=== PATIENT | male | born 1955 | race Caucasian/White ===

== ENCOUNTER 2021-10-22 10:34 | Emergency (ER) | payer OTHER ==
[2021-10-22] MEDS ORDERED: HYDROCODONE/APAP 7.5/325 MG TAB ONE (10:53)
--- NOTE | 2021-10-22 12:20 | RAD REPORT ---
EXAM DESCRIPTION: Ribs Right - 10/22/2021 11:19 am CLINICAL HISTORY: fall;Pain COMPARISON: <Comparisons> FINDINGS: The posterolateral right fifth and sixth ribs are fractured with no significant displaceme nt. No pathologic rib changes. No pneumothorax is seen. Right costophrenic angle blunting is present. There is right base atelectasi s. A small amount of pleural fluid or hemothorax cannot be excluded. IMPRESSION: Posterolateral right fifth and sixth rib fractures as detailed.
[2021-10-22 12:44] LABS: Absolute Lymphocytes (CBC) 1.5 K/uL (0.7-4.9); Hematocrit 51.8 % (39.6-49.0); Lymphocytes % 10.2 % (15.3-44.8); RBC Red Blood Cell Count 6.04 M/uL (4.33-5.43)
[2021-10-22] MEDS ORDERED: FENTANYL CITR 100 MCG/2 ML ONE (12:45)
[2021-10-22 13:44] LABS: Protime INR 0.99
[2021-10-22 13:52] LABS: Potassium 4.8 mmol/L (3.5-5.1)
--- NOTE | 2021-10-22 14:24 | RAD REPORT ---
EXAM DESCRIPTION: CT - Chest Abdomen Pelvis W Cont - 10/22/2021 2:13 pm CLINICAL HISTORY: Chest and abdomen pain. right side rib pain from fall COMPARISON: No comparisons TECHNIQUE: Approximately 100 mL nonionic IV contrast was administered to the patient. All CT scans are performed using dose optimization technique as appropriate and may include automated exposure control or mA/KV adjustment according to patient size. FINDINGS: The lungs are mildly emphysematous with linear subsegmental atelectasis in the right lung base.No pleural or pericardial effusion.No intrathoracic adenopathy. Right lateral fifth and sixth right ribs are fractured with slight overriding. Elevation of the right hemidiaphragm is present. Mild fatty liver. Cholecystectomy clips. The spleen, pancreas and adrenal glands are within normal li mits. Small cysts are present in both kidneys. No solid mass or hydronephrosis. No bowel obstruction, free air, free fluid or abscess. Nonvisualized appendix. No pathologic lymphad enopathy in the abdomen or pelvis. IMPRESSION: Slightly displaced right lateral fifth and sixth rib fractures.No pneumothorax.
--- NOTE | 2021-10-22 14:57 | ER ---
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 R sided trunk/rib ll1 cage pain since. + SOB. Coronavirus screen: Vaccine status: Patient reports being unvaccinated. Client denies travel out of the [place] in the last 14 days. At this time, the client does not indicate any symptoms associated with coronavirus-19. Ebola Screen: Patient denies travel to an Ebola-affected area in the 21 days before illness onset. Initial Sepsis Screen: Does the patient meet any 2 criteria? No. Patient's initial sepsis screen is negative. Does the patient have a suspected source of infection? Yes: Bone or joint infection. Risk Assessment: Do you want to hurt yourself or someone else? Patient reports no desire to harm self or others. Onset of symptoms was October 21, 2021. 10:44 Method Of Arrival: Ambulatory ll1 10:44 Acuity: CRISTHIAN 4 ll1 15:01 Mechanism of Injury: Fall from standing position. Triage Assessment: 10:47 General: Appears uncomfortable, Behavior is calm, cooperative, appropriate for age. ll1 Pain: Complains of pain in R trunk Quality of pain is described as aching. Neuro: No deficits noted. Cardiovascular: No deficits noted. Respiratory: Reports pain with respiration. Historical: - Allergies: 10:46 No Known Allergies; ll1 - PMHx: 10:46 None; ll1 - PSHx: 10:46 R BKA; Cholecystectomy; ll1 - Immunization history:: Client reports receiving the 2nd dose of the Covid vaccine. - Social history:: Smoking status: Patient reports the use of cigarette tobacco products, smokes one-half pack cigarettes per day. - Immunization history: Last tetanus immunization: - up to date. Screenin:52 Abuse screen: Denies threats or abuse. Nutritional screening: No deficits noted. ll1 Tuberculosis screening: No symptoms or risk factors identified. Fall Risk Fall in past 12 months (25 points). Ambulatory Aid- Crutches/Cane/Walker (15 pts). Total Tomas Fall Scale indicates Low Risk Score (25-44 pts). Fall prevention measures have been instituted. Side Rails Up X 2 Frequent Obs/Assesments occuring As available Patient and Family Educated on Fall Prevention Program and strategies. Primary Survey: 10:53 NO uncontrolled hemorrhage observed. A: The patient is alert. Airway: patent. ll1 Breathing/Chest: Respiratory pattern: regular, Respiratory effort: spontaneous, unlabored, Breath sounds: clear. Circulation: Pulses: palpable right radial artery and left radial artery. Disability Alert. Exposure/Environment: There is no evidence of uncontrolled external bleeding. 15:01 Reassessment Breathing/Chest Respiratory pattern Regular Respiratory effort Unlabored. ww Assessment: 11:45 Reassessment: No changes from previously documented assessment. Patient and/or family ll1 updated on plan of care and expected duration. Pain level reassessed. Patient is alert, oriented x 3, equal unlabored respirations, skin warm/dry/pink. 12:03 General: Appears in no apparent distress. uncomfortable, Behavior is calm, cooperative. vg1 Pain: Complains of pain in Right side of ribs. Neuro: Level of Consciousness is awake, alert, obeys commands, Oriented to person, place, time, situation. Cardiovascular: Patient's skin is warm and dry. Respiratory: Airway is patent Respiratory effort is even, unlabored, Breath sounds are diminished in right posterior lower lobe. GI: No signs and/or symptoms were reported involving the gastrointestinal system. : No signs and/or symptoms were reported regarding the genitourinary system. EENT: No signs and/or symptoms were reported regarding the EENT system. Derm: Skin is intact, Skin is pink, warm \T\ dry. Musculoskeletal: Circulation, motion, and sensation intact. 13:00 Reassessment: Patient appears in no apparent distress at this time. No changes from vg1 previously documented assessment. Patient and/or family updated on plan of care and expected duration. Pain level reassessed. Patient is alert, oriented x 3, equal unlabored respirations, skin warm/dry/pink. 14:24 Reassessment: Patient appears in no apparent distress at this time. No changes from ww previously documented assessment. Patient and/or family updated on plan of care and expected duration. Pain level reassessed. Patient is alert, oriented x 3, equal unlabored respirations, skin warm/dry/pink. 15:00 Reassessment: Patient appears in no apparent distress at this time. No changes from ww previously documented assessment. Patient and/or family updated on plan of care and expected duration. Pain level reassessed. Patient is alert, oriented x 3, equal unlabored respirations, skin warm/dry/pink. Vital Signs: 10:44 BP 169 / 82; Pulse 82; Resp 16; Temp 97.3; Pulse Ox 100% ; Weight 96.16 kg; Height 6 ll1 ft. 1 in. (185.42 cm); Pain 10/10; 13:20 BP 171 / 86; Pulse 72; Resp 18; Pulse Ox 100% on R/A; vg1 15:00 BP 177 / 92; Pulse 73; Resp 16; Pulse Ox 98% on R/A; ww 10:44 Body Mass Index 27.97 (96.16 kg, 185.42 cm) ll1 Luis Coma Score: 10:52 Eye Response: spontaneous(4). Verbal Response: oriented(5). Motor Response: obeys ll1 commands(6). Total: 15. Trauma Score (Adult): 10:52 Eye Response: spontaneous(1); Verbal Response: oriented(1); Motor Response: obeys ll1 commands(2); Systolic BP: > 89 mm Hg(4); Respiratory Rate: 10 to 29 per min(4); Theodore Score: 15; Trauma Score: 12 ED Course: 10:35 Patient arrived in ED. am2 10:46 Triage completed. ll1 10:46 Arm band placed on. ll1 10:49 [facility]. cp 10:49 Booker Webber MD is Attending Physician. cp 10:53 Patient has correct armband on for positive identification. Call light in reach. ll1 Cardiac monitoring not applicable on this patient. 10:53 Patient maintains SpO2 saturation greater than 95% on room air. ll1 11:18 X-ray completed. Patient tolerated procedure well. Patient taken to [facility], via 1 wheelchair. 11:21 XRAY Ribs RIGHT In Process Unspecified. EDMS 11:56 Wandy Arreaga, RN is Primary Nurse. vg1 12:30 EKG done. ww 12:30 Inserted saline lock: 20 gauge in right antecubital area, using aseptic technique. ww Blood collected. 13:20 IV discontinued, intact, bleeding controlled, No redness/swelling at site. Pressure vg1 dressing applied, IV infiltrated. 13:27 Lab(s) recollected, by ED staff, sent to lab. Inserted saline lock: 20 gauge in left vg1 wrist, using aseptic technique. Blood collected. 14:15 CT Chest, Abdomen, Pelvis - W/Contrast In Process Unspecified. EDMS 15:01 No provider procedures requiring assistance completed. ww Administered Medications: 10:52 Drug: Hydrocodone-Acetaminophen (7.5 mg-325 mg) 1 tabs Route: PO; ll1 12:03 Follow up: Response: No adverse reaction; No change in condition vg1 12:50 Drug: fentaNYL (PF) 25 mcg Route: IVP; Site: right antecubital; ww Intake: 15:00 PO: 0ml; Total: 0ml. ww Outcome: 14:56 Discharge ordered by MD. cp 15:00 Discharged to home with family. ww 15:00 Condition: stable 15:00 Patient's length of stay in the Emergency Department was greater than 2 hours. 15:01 Discharge instructions given to patient, Instructed on discharge instructions, follow ww up and referral plans. medication usage, safety practices, Demonstrated understanding of instructions, follow-up care, medications. 15:14 Patient left the ED. ww Signatures: Dispatcher [employer] EDMS Angeles Campbell 1 Viral Quiroz PA PA cp Moreno, Amanda am2 Wandy Arreaga RN RN vg1 Gisel Ruvalcaba RN RN ll1 Nicole Prado RN RN ww Corrections: (The following items were deleted from the chart) 10:48 10:44 Pulse 79bpm; Resp 16bpm; Pulse Ox 100%; Temp 97.3F; 96.16 kg; Height 6 ft. 1 in.; ll1 BMI: 27.9; Pain 10/10; ll1 13:01 12:03 Respiratory: Airway is patent Respiratory effort is even, unlabored, Breath vg1 sounds are clear bilaterally. vg1
--- NOTE | 2021-10-22 14:57 | EDPHYS ---
Physician Documentation [facility] Name: João Haro Age: 66 yrs Sex: Male : 1955 Arrival Date: 10/22/2021 Time: 10:35 Bed 6 Private MD: ED Physician Booker Webber HPI: 10/22 11:00 This 66 yrs old Male presents to ER via Ambulatory with complaints of Fall Injury, rib cp pain, right side pain. 11:00 Details of fall: The patient fell from an upright position, while walking, and struck cp dirt. Onset: The symptoms/episode began/occurred yesterday. Associated injuries: The patient sustained injury to the chest, specifically the right side lateral lower rib area, pain with breathing, pain with movement. 11:00 Patient reports fall yesterday after losing balance causing him to land on right side cp and injury right lower lateral rib area. Patient denies LOC, denies hitting head and/or neck area. Historical: - Allergies: 10:46 No Known Allergies; ll1 - PMHx: 10:46 None; ll1 - PSHx: 10:46 R BKA; Cholecystectomy; ll1 - Immunization history:: Client reports receiving the 2nd dose of the Covid vaccine. - Social history:: Smoking status: Patient reports the use of cigarette tobacco products, smokes one-half pack cigarettes per day. - Immunization history: Last tetanus immunization: - up to date. ROS: 11:05 Constitutional: Negative for body aches, chills, fever, poor PO intake. cp 11:05 Eyes: Negative for injury, pain, redness, and discharge. cp 11:05 ENT: Negative for drainage from ear(s), ear pain, sore throat, difficulty swallowing, difficulty handling secretions. 11:05 Neck: Negative for pain with movement, pain at rest, stiffness. 11:05 Cardiovascular: Positive for chest pain, of the right lower lateral rib area, Negative for edema, palpitations. 11:05 Respiratory: Negative for cough, shortness of breath, wheezing. 11:05 Abdomen/GI: Negative for abdominal pain, nausea, vomiting, and diarrhea. 11:05 Back: Negative for radiated pain. 11:05 Neuro: Negative for altered mental status, headache, loss of consciousness, syncope. 11:05 All other systems are negative. Exam: 11:10 Constitutional: The patient appears in no acute distress, alert, awake, cp non-diaphoretic, non-toxic, well developed, well nourished, uncomfortable. 11:10 Head/Face: Normocephalic, atraumatic. cp 11:10 Eyes: Periorbital structures: appear normal, Conjunctiva: normal, no exudate, no injection, Lids and lashes: appear normal, bilaterally. 11:10 ENT: External ear(s): are unremarkable, Nose: is normal, Mouth: Lips: moist, Oral mucosa: moist, Posterior pharynx: Airway: no evidence of obstruction, patent. 11:10 Neck: C-spine: vertebral tenderness, is not appreciated, crepitus, is not appreciated, ROM/movement: is normal, is supple, without pain, no range of motions limitations. 11:10 Chest/axilla: Inspection: normal, Palpation: crepitus, is not appreciated, tenderness, that is moderate, of the right lower lateral rib area. 11:10 Cardiovascular: Rate: normal, Rhythm: regular, JVD: is not appreciated. 11:10 Respiratory: the patient does not display signs of respiratory distress, Respirations: normal, no use of accessory muscles, no retractions, labored breathing, is not present, Breath sounds: are clear throughout, no decreased breath sounds, no stridor, no wheezing. 11:10 Abdomen/GI: Inspection: abdomen appears normal, Bowel sounds: active, all quadrants, Palpation: soft, in all quadrants, mild abdominal tenderness, in the right upper quadrant, rebound tenderness, is not appreciated, voluntary guarding, is not appreciated, involuntary guarding, is not appreciated. 11:10 Back: vertebral tenderness, is not appreciated. 11:10 Musculoskeletal/extremity: Exam is negative for acute injury and/or deformity. 11:10 Neuro: Orientation: to person, place \T\ time. Mentation: is normal. Vital Signs: 10:44 BP 169 / 82; Pulse 82; Resp 16; Temp 97.3; Pulse Ox 100% ; Weight 96.16 kg; Height 6 ll1 ft. 1 in. (185.42 cm); Pain 10/10; 13:20 BP 171 / 86; Pulse 72; Resp 18; Pulse Ox 100% on R/A; vg1 15:00 BP 177 / 92; Pulse 73; Resp 16; Pulse Ox 98% on R/A; ww 10:44 Body Mass Index 27.97 (96.16 kg, 185.42 cm) ll1 Luis Coma Score: 10:52 Eye Response: spontaneous(4). Verbal Response: oriented(5). Motor Response: obeys ll1 commands(6). Total: 15. Trauma Score (Adult): 10:52 Eye Response: spontaneous(1); Verbal Response: oriented(1); Motor Response: obeys ll1 commands(2); Systolic BP: > 89 mm Hg(4); Respiratory Rate: 10 to 29 per min(4); Luis Score: 15; Trauma Score: 12 MDM: 11:27 Patient medically screened. cp 13:00 Differential diagnosis: contusion, fracture, multiple trauma, hemopneumothorax, cp pneumothorax. 14:53 ED course: No results found on inquiry of [employer] prescription monitor website. cp 14:55 Data reviewed: vital signs, nurses notes, lab test result(s), EKG, radiologic studies, cp CT scan, plain films. 14:55 Test interpretation: by ED physician or midlevel provider: ECG, plain radiologic cp studies. Counseling: I had a detailed discussion with the patient and/or guardian regarding: the historical points, exam findings, and any diagnostic results supporting the discharge/admit diagnosis, lab results, radiology results, the need for outpatient follow up, a family practitioner, to return to the emergency department if symptoms worsen or persist or if there are any questions or concerns that arise at home. Response to treatment: VSS. Pain markedly improved with meds. Patient appears non-toxic and no signs of respiratory distress. Will discharge to home for continued monitoring. 10/22 12:27 Order name: Basic Metabolic Panel; Complete Time: 14:07 10/22 14:47 Interpretation: GFR 61; Reviewed. 10/22 12:27 Order name: CBC with Diff; Complete Time: 14: 10/22 14:48 Interpretation: Normal except: WBC 14.20; RBC 6.04; HCT 51.8; RDW 16.1; NAKITA% 83.9; LYM% cp 10.2; NEUT A 11.9. 10/22 10:50 Order name: XRAY Ribs RIGHT; Complete Time: 12:21 10/22 12:27 Order name: PT-INR; Complete Time: 14:07 cp 10/22 12:27 Order name: CT Chest, Abdomen, Pelvis - W/Contrast; Complete Time: 14:46 cp 10/22 14:50 Order name: INCENTIVE SPIROMETRY cp 10/22 12:27 Order name: EKG; Complete Time: 12:27 cp 10/22 12:27 Order name: Cardiac monitoring; Complete Time: 12:56 cp 10/22 12:27 Order name: EKG - Nurse/Tech; Complete Time: 12:56 cp 10/22 12:27 Order name: IV Saline Lock; Complete Time: 12:56 cp 10/22 12:27 Order name: Labs collected and sent; Complete Time: 12:56 cp 10/22 12:27 Order name: O2 Per Protocol; Complete Time: 12:56 cp 10/22 12:27 Order name: O2 Sat Monitoring; Complete Time: 12:56 cp Administered Medications: 10:52 Drug: Hydrocodone-Acetaminophen (7.5 mg-325 mg) 1 tabs Route: PO; ll1 12:03 Follow up: Response: No adverse reaction; No change in condition vg1 12:50 Drug: fentaNYL (PF) 25 mcg Route: IVP; Site: right antecubital; ww Disposition: 15:17 Co-signature as Attending Physician, Booker Webber MD I agree with the assessment and kdr plan of care. Disposition Summary: 10/22/21 14:56 Discharge Ordered Location: Home cp Problem: new cp Symptoms: have improved cp Condition: Stable cp Diagnosis - Multiple fractures of ribs, right side cp Followup: cp - With: Private Physician - When: 2 - 3 days - Reason: Recheck today's complaints Discharge Instructions: - Discharge Summary Sheet cp - Rib Fracture cp - How to Use an Incentive Spirometer cp - Form - Incentive Spirometer Record cp Forms: - Medication Reconciliation Form cp - Thank You Letter cp - Antibiotic Education cp - Prescription Opioid Use cp Prescriptions: - Ibuprofen 800 mg Oral Tablet - take 1 tablet by ORAL route every 8 hours As needed take with food; 30 tablet; cp Refills: 0, Product Selection Permitted - Cyclobenzaprine 10 mg Oral Tablet - take 1 tablet by ORAL route every 8 hours As needed; 20 tablet; Refills: 0, cp Product Selection Permitted - Tylenol-Codeine #3 300 mg-30 mg Oral - take 2 tablet by ORAL route every 8-10 hours; 20 tablet; Refills: 0, Product cp Selection Permitted Signatures: Dispatcher [employer] Booker Reyes MD MD kdr Page, Corey, PA PA cp Lewis, Lynsay RN RN ll1 Nicole Prado RN RN ww Wandy Arreaga RN vg1
[2021-10-22 15:22] VITALS: TEMP 97.3
[2021-10-22 15:24] VITALS: BP 177/92; O2SAT 98
== END 2021-10-22 15:14 | disposition home or self-care (01) ==
LOC: ER 10:34
DX: S22.41XA Multiple fractures of ribs, right side, initial encounter for closed fracture (principal); W18.30XA Fall on same level, unspecified, initial encounter; Y93.01 Activity, walking, marching and hiking; Y92.89 Other specified places as the place of occurrence of the external cause; F17.210 Nicotine dependence, cigarettes, uncomplicated
CPT/HCPCS: 93005 ×2; 85025; 80048; 36415; 85610; 71260; 74177; 71100; 96374; 99284; Q9967; J3010